=== PATIENT | male | born 2000 | race Two or more races ===

== ENCOUNTER 2023-11-12 05:03 | Emergency (ER) | payer MEDICAID ==
[~2023-11-12] VITALS: Ht 162.6 cm; Wt 69.4 kg
[~2023-11-12 05:03] MED LIST: TOPUD PO
[2023-11-12] MEDS: LIDOCAINE 5% PATCH TOP STA (08:26)
[2023-11-12] MEDS: PREDNISONE 20MG TABLET PO ONE (08:30)
[2023-11-12] MEDS ORDERED: IBUP-2029 MT (10:14)
[2023-11-12] MEDS: LIDOCAINE 5% PATCH TOP SCH (11:32)
[2023-11-12] MEDS: PREDNISONE 20MG TABLET PO SCH (11:32)
[2023-11-12 11:37] VITALS: BP 126/74; PULSE 85; RESP 15; TEMP 36.89184; O2SAT 100
== END 2023-11-12 11:43 | disposition home or self-care (01) ==
LOC: ER 05:19
DX: G89.29 Other chronic pain (principal); M54.50 Low back pain, unspecified
CPT/HCPCS: 99283; J7512

== ENCOUNTER 2023-11-14 00:23 | Emergency (ER) | payer MEDICAID ==
[~2023-11-14] VITALS: Ht 162.6 cm; Wt 71.0 kg
[~2023-11-14 00:23] MED LIST changes: +IBUP-2029 MT
[2023-11-14 01:34] VITALS: TEMP 98; O2SAT 97
[2023-11-14 01:36] VITALS: BP 122/71; PULSE 102; RESP 15; O2SAT 99
== END 2023-11-14 05:25 | disposition left against medical advice (07) ==
LOC: ER 00:23
DX: M54.9 Dorsalgia, unspecified (principal); Z53.21 Procedure and treatment not carried out due to patient leaving prior to being seen by health care provider